=== PATIENT | female | born 2000 | race Caucasian/White ===

== ENCOUNTER 2024-12-08 20:21 | Emergency (ER) | payer BC ==
[~2024-12-08] VITALS: Ht 157.5 cm; Wt 57.0 kg
[2024-12-08 20:45] VITALS: BP 116/94; PULSE 90; RESP 18; TEMP 98.6; O2SAT 99
[2024-12-08] MEDS ORDERED: BUDE10.32 INH (22:02)
[2024-12-08] MEDS ORDERED: TOPUD MT (22:02)
[2024-12-08] MEDS ORDERED: DEXT30SU17 MT (22:02)
[2024-12-08] MEDS ORDERED: P50 MT (22:02)
== END 2024-12-08 22:45 | disposition home or self-care (01) ==
LOC: ER 20:21
DX: J45.901 Unspecified asthma with (acute) exacerbation (principal)
CPT/HCPCS: 71045; 93005; 99283

== ENCOUNTER 2024-12-23 23:06 | Emergency (ER) | payer BC ==
[~2024-12-23] VITALS: Ht 160 cm; Wt 61.0 kg
[~2024-12-23 23:06] MED LIST: BUDE10.32 INH; DEXT30SU17 MT; P50 MT; TOPUD MT
[2024-12-24] MEDS: HALOPERIDOL LACTATE 5MG/ML VIAL IM ONE (04:01)
[2024-12-24] MEDS: DIPHENHYDRAMINE 50MG/ML VIAL IM ONE (04:01)
[2024-12-24] MEDS: LORAZEPAM 2MG/ML INJ IM STA (04:01)
[2024-12-24 04:26] VITALS: O2SAT 100
[2024-12-24 04:26] LABS: CLARITY URINE CLEAR (CLEAR); COLOR URINE DARK YELLOW (YELLOW); GLUCOSE URINE NEGATIVE (NEGATIVE); KETONES URINE TRACE (NEGATIVE); LEUKOCYTE ESTERASE URINE NEGATIVE (NEGATIVE); NITRITE URINE NEGATIVE (NEGATIVE); OCCULT BLOOD URINE NEGATIVE (NEGATIVE); PH URINE 5.5 (4.5-8.0); PROTEIN URINE NEGATIVE (NEGATIVE); SPECIFIC GRAVITY URINE 1.032 (1.005-1.030)
[2024-12-24 04:27] LABS: BASOPHILS % 0.9 % (0.0-2.0); EOSINOPHILS % 0.8 % (0.0-5.0); HEMATOCRIT. 45.1 % (36.0-48.0); HEMOGLOBIN. 15.8 g/dL (12.0-16.0); LYMPHOCYTES % 28.9 % (20.0-50.0); MEAN CORPUSCULAR HEMOGLOBIN 32.9 pg (28.0-32.0); MEAN CORPUSCULAR HGB CONC 35.1 g/dL (31.0-37.0); MEAN CORPUSCULAR VOLUME 93.8 fL (81.0-99.0); MEAN PLATELET VOLUME 8.5 fl (7.4-10.4); MONOCYTES % 8.9 % (2.0-8.0); NEUTROPHILS % 60.5 % (40.0-76.0); PLATELET 371 x1000/uL (130-400); RED BLOOD CELL COUNT 4.81 mill/uL (4.2-5.4); RED CELL DISTRIBUTION WIDTH 13.2 % (11.6-14.6); WHITE BLOOD COUNT 12.6 x1000/uL (4.5-11.0)
[2024-12-24 04:29] LABS: *AMPHETAMINES SCREEN URINE NEGATIVE (NEGATIVE); *BARBITURATES SCREEN URINE NEGATIVE (NEGATIVE); *BENZODIAZEPINES SCREEN URINE NEGATIVE (NEGATIVE); *COCAINE SCREEN URINE NEGATIVE (NEGATIVE)
[2024-12-24 04:30] LABS: CANNABINOID URINE SCREEN PRESUMPTIVE POSITIVE (NEGATIVE); ECSTASY MDMA SCREEN URINE NEGATIVE (NEGATIVE); METHADONE URINE SCREEN NEGATIVE (NEGATIVE); OPIATES URINE SCREEN NEGATIVE (NEGATIVE); PHENCYCLIDINE URINE SCREEN NEGATIVE (NEGATIVE)
[2024-12-24 04:33] LABS: CHLORIDE 108 mEq/L (98-107); POTASSIUM 3.7 mEq/L (3.5-5.1); SODIUM 141 mEq/L (136-145)
[2024-12-24 04:34] LABS: CARBON DIOXIDE 23 mEq/L (21-32)
[2024-12-24 04:35] LABS: CALCIUM 10.3 mg/dL (8.7-10.4)
[2024-12-24 04:39] LABS: CREATININE 0.8 mg/dL (0.6-1.0); GLUCOSE 117 mg/dL (70-105); UREA NITROGEN BLOOD 10 mg/dL (9-23)
[2024-12-24 04:41] LABS: ACETAMINOPHEN < 2 ug/mL (10-30)
[2024-12-24 05:12] LABS: ETHANOL BLOOD < 10 mg/dL (<10)
[2024-12-24 05:57] LABS: HCG SCREEN NEGATIVE
[2024-12-24 12:40] VITALS: BP 115/65; PULSE 75; RESP 14; TEMP 36.9; O2SAT 100
[2024-12-25] MEDS ORDERED: OLANZAPINE 5MG TABLET ODT PO SCH (09:00)
== END 2024-12-24 13:16 ==
LOC: ER 23:06
DX: F22 Delusional disorders (principal); J45.909 Unspecified asthma, uncomplicated; Z20.822 Contact with and (suspected) exposure to COVID-19; Z79.899 Other long term (current) drug therapy
CPT/HCPCS: 99285; 80305; 80048; 81003; 80307; 80329; 80320; 84703; 85025; 36415; 96372; 87426; J1200; J1630; J2060; G0480